=== PATIENT | male | born 1945 | race Caucasian/White ===

== ENCOUNTER → 2016-08-21 | Outpatient (CLI) | payer MEDICARE, OTHER ==
[2016-06-28 06:02] VITALS: BP 135/71
[~2016-08-21] MED LIST: ASPI325T4 PO; CELE200C PO; CHOL100013 PO; HYDR-2762 PO; NAPR500T PO; PSEU120T9 PO; VITA1CAP PO
[2016-08-21 14:24] LABS: BILIRUBIN,URINE NEGATIVE (NEG); GLUCOSE,URINE NEGATIVE (NEG); NITRITE,URINE NEGATIVE (NEG); PH,URINE 6.5; PROTEIN,URINE NEGATIVE (NEG-TRACE); UROBILINOGEN,URINE 0.2 mg/dL (0.2 mg/dL)
[2016-08-21 14:26] LABS: BASO # 0.1 x10^3/uL (0.0-0.2); BASO % 1 % (0-3); EOS % 2 % (0-3); HEMATOCRIT 39.1 % (39.0-53.0); HEMOGLOBIN 12.7 g/dL (13.0-17.5); LYMPH # 1.8 x10^3/uL (1.0-4.8); LYMPH % 23 % (24-48); MEAN CORPUSCULAR HEMOGLOBIN 29 pg (25-35); MEAN CORPUSCULAR HGB CONC 32 g/dL (31-37); MEAN CORPUSCULAR VOLUME 90 fL (79-100); MONO % 8 % (0-9); NEUT % 66 % (31-73); PLATELET COUNT 226 x10^3/uL (140-400); RED BLOOD COUNT 4.34 x10^6/uL (4.30-5.70); RED CELL DISTRIBUTION WIDTH 14.4 % (11.5-14.5); WHITE BLOOD COUNT 7.6 x10^3/uL (4.0-11.0)
[2016-08-21 14:32] LABS: ALBUMIN 3.8 g/dL (3.4-5.0); CREATININE 0.8 mg/dL (0.7-1.3); GFR 95.6; POTASSIUM 4.1 mmol/L (3.5-5.1)
[2016-08-21 14:35] LABS: PROTHROMBIN TIME PATIENT 12.9 SEC (11.7-14.0)
[2016-08-21 14:38] LABS: BACTERIA,URINE 0 /HPF (0-FEW); WBC,URINE 0 /HPF (0-4)
== END | disposition home or self-care (01) ==
LOC: SURGPAT 13:09
PROVIDERS: ATTEND Orthopaedic Surgery
DX: Z96.652 Presence of left artificial knee joint (principal)
CPT/HCPCS: 36415; 80048; 81001; 82040; 85027; 85610; 85651; 85730; 87641

== ENCOUNTER 2016-09-04 05:33 | Inpatient (IN) | payer MEDICARE, OTHER ==
--- NOTE | 2016-09-03 09:35 | PDOC1 ---
History and Physical Date of Admission Date of Admission DATE: 09/04/16 Identification/Chief Complaint Chief Complaint left knee osteoarthritis pain Source Source: Chart review History of Present Illness History of Present Illness He is a 70-year-old man with left knee pain. He had revision right total knee arthroplasty on 06/26/16 and is doing very well postoperatively. He had a visit on 03/11/12 in our office where he was diagnosed with left knee osteoarthritis and given nonoperative treatment. He was seen again on 12/06/2013, and treated with a cortisone injection for left knee osteoarthritis. Severe arthritis and [id number] changes noted at the prior visits. He did have an MRI on 12/06/2013 that showed full thickness cartilage loss on the lateral trochlea, a subcentimeter loose body. Degenerative meniscus tears, and tricompartmental chondromalacia and degenerative changes. He has used Aleve for the symptoms in the knee, and was on crutches for a while one was really bad. He has been walking aggressively in an attempt to lose weight. Past Medical History Cardiovascular: No pertinent hx Past Surgical History Past Surgical History: Arthroscopy, Total knee replacement (right - 06/26/16), Other (CTR, right hand reconstructive surgery) Family History Family History: Heart Disease Social History Smoke: Quit ALCOHOL: none Drugs: None Current Medications Current Medications Active Scripts Active Reported Hydrocodone-Apap 7.5-325 (Hydrocodone Bit/Acetaminophen) 1 Each Tablet 1 Tab PO PRN Q6HRS PRN Sudafed 12-Hour (Pseudoephedrine Hcl) 120 Mg Tablet.er 30 Mg PO Aspirin 325 Mg Tablet 1 Tab PO BID Allergies Allergies: Coded Allergies: celecoxib (Verified Allergy, Intermediate, Rash, 08/21/16) warfarin (Verified Allergy, Intermediate, Hives, 08/21/16) adhesive (Verified Allergy, Unknown, 08/21/16) SKIN BECAME RED/ LIKE CHEMICAL BURN TO INCISION SITE. perfume (Verified Adverse Reaction, Intermediate, Rash, 08/21/16) Physical Exam General: Alert, Oriented X3, Cooperative, No acute distress HEENT: Atraumatic Lungs: Normal air movement Heart: RRR Abdomen: Soft Extremities: No clubbing, No cyanosis, Normal pulses, Other (The LEFT knee shows his mildly antalgic gait. There is varus alignment. No masses. No detectable effusion. Tenderness on the joint lines. Range of motion is 5-115 degrees. There is crepitus with range of motion, and pain at the extremes of motion. The knee is stable to varus and valgus stress without subluxation or laxity. Muscle strength is normal (5/5) for quadriceps and hamstrings, and muscle tone is normal. The skin is normal with no scars, rashes, lesions or ulcers. Light touch sensation is intact. No edema and no varicosities. Dorsalis pedis pulse is intact and capillary refill is normal. The RIGHT knee range of motion 0-110 degrees. The incision is benign. No longer using a walker or crutches. Slight warmth and swelling consistent with recent knee replacement. No sign of infection. Calf is soft and nontender, with no evidence of DVT. ) Skin: No rashes, No breakdown, No significant lesion Neuro: Normal speech, Sensation intact Psych/Mental Status: Mental status NL, Mood NL VTE Prophylaxis Ordered VTE Prophylaxis Devices: Yes VTE Pharmacological Prophylaxi: Yes Assessment/Plan Assessment/Plan Left knee osteoarthritis pain. Dr. Garcia and the patient had a long discussion about his left knee. He does have a small loose body seen on the MRI, but it is my opinion that removal of the loose body will not dramatically improved his symptoms. In fact it could be just a placebo effect as has been shown in some of the prior studies done at the [facility] of patients with severe arthritis to have knee arthroscopy. My recommendation is either nonoperative treatment, or consider total knee arthroplasty. At age 70 years, there is not much benefit to waiting five more years to try to have his knee replaced, as his health was not likely to improve in that time and likely only to worsen. We talked about the risks of total knee arthroplasty such as infection, blood clots, stiffness, or other potential surgical or anesthetic complications. All of his questions were answered and he agrees to proceed. JENNIFER WHEATLEY Sep 03, 2016 09:35
[2016-09-04] VITALS (11 sets, daily range): BP systolic 105–134; BP diastolic 47–69
[~2016-09-04] VITALS: Ht 180.3 cm; Wt 87.1 kg
[2016-09-04] MEDS ORDERED: MELOXICAM 7.5 MG TABLET PO PRN (06:00)
[2016-09-04] MEDS ORDERED: TRANEXAMIC ACID 1,000 MG in IV NS 50ML -- 1ST BAG INJ ONE (06:00)
[2016-09-04] MEDS ORDERED: MORPHINE SULFATE 5 MG, KETOROLAC TROMETHAMINE 30 MG, ROPIVacaine 0.5% PF 60 ML, EPINEPH... INT ART ONE ×5 (06:00)
[2016-09-04] MEDS ORDERED: CEFAZOLIN 2GM PREMIX 50 ML IV PRN (06:00)
[2016-09-04] MEDS ORDERED: HYDROCODONE/APAP 7.5/325MG TABLET. PO PRN (06:00)
[2016-09-04] MEDS ORDERED: MELO15TA6 PO (06:09)
[2016-09-04] MEDS ORDERED: VANCOMYCIN 1 GM VIAL. ONE (06:19)
[2016-09-04] MEDS ORDERED: TOBRAMYCIN POWDER 1.2 GM VIAL. ONE (06:19)
[2016-09-04] MEDS: IV RINGERS,LACTATED 1000ML 1,000 ML IV SCH ×2 (06:44→10:46)
[2016-09-04] MEDS ORDERED: ONDANSETRON PF 4 MG/2 ML VIAL. IV PRN (07:00)
[2016-09-04] MEDS ORDERED: PROCHLORPERAZINE 10 MG/2 ML VIAL. IV PRN ×2 (07:00→10:15)
[2016-09-04] MEDS ORDERED: HYDROMORPHONE 2 MG/ML VIAL. IV PRN (07:00)
[2016-09-04] MEDS ORDERED: FENTANYL PF 100 MCG/2 ML VIAL. IV PRN ×3 (07:00→10:15)
[2016-09-04] MEDS ORDERED: MORPHINE SULFATE 2 MG/ML DISP.SYRIN. IV PRN ×2 (07:00→10:15)
[2016-09-04] MEDS ORDERED: LIDOCAINE 1% 1 ML SYRINGE. ID PRN (07:00)
[2016-09-04] MEDS ORDERED: FENTANYL PF 100 MCG/2 ML VIAL. ONE (07:17)
[2016-09-04] MEDS ORDERED: MIDAZOLAM HCL 2 MG/2 ML VIAL. ONE (07:18)
[2016-09-04] MEDS ORDERED: ONDANSETRON PF 4 MG/2 ML VIAL. ONE (07:18)
[2016-09-04] MEDS ORDERED: LIDOCAINE 2% 100 MG/5 ML DISP.SYRIN. ONE (07:18)
[2016-09-04] MEDS ORDERED: SEVOFLURANE 61 TO 120 MINUTES. IH ONE (07:18)
[2016-09-04] MEDS ORDERED: DEXAMETHASONE SOD PHOS 20 MG/5 ML VIAL. ONE (07:18)
[2016-09-04] MEDS ORDERED: PROPOFOL 20 ML IV ONE (07:18)
[2016-09-04] MEDS ORDERED: TRANEXAMIC ACID 1,000 MG in IV NS 50ML -- 2ND BAG INJ ONE (08:00)
[2016-09-04] MEDS ORDERED: EPHEDRINE PF IN SALINE 50 MG/5 ML DISP.SYRIN. IV ONE (08:08)
[2016-09-04] MEDS ORDERED: MORPHINE PF 5 MG/10 ML VIAL. ONE (10:13)
[2016-09-04] MEDS ORDERED: ZOLPIDEM 5 MG TABLET. PO PRN (10:15)
[2016-09-04] MEDS ORDERED: DEXTROSE 50% 25 GM / 50ML DISP.SYRIN. IV PRN (10:15)
[2016-09-04] MEDS ORDERED: OXYCODONE/APAP 5/325 TABLET. PO PRN (10:15)
[2016-09-04] MEDS ORDERED: PROCHLORPERAZINE 5 MG TABLET. PO PRN (10:15)
[2016-09-04] MEDS ORDERED: MORPHINE SULFATE 4 MG/ML DISP.SYRIN. IV PRN ×2 (10:15)
[2016-09-04] MEDS ORDERED: METOCLOPRAMIDE HCL 10 MG/2 ML VIAL. IV PRN (10:15)
[2016-09-04] MEDS ORDERED: 0.9 % SODIUM CHLORIDE 10 ML DISP.SYRIN. IV PRN (10:15)
[2016-09-04] MEDS ORDERED: DIPHENHYDRAMINE 50 MG/ML VIAL IV PRN (10:15)
[2016-09-04] MEDS ORDERED: ACETAMINOPHEN 325 MG TABLET. PO PRN (10:15)
[2016-09-04] MEDS ORDERED: TRAMADOL 50 MG TABLET. PO PRN ×2 (10:15)
[2016-09-04] MEDS ORDERED: MORPHINE SULFATE 10 MG/ML VIAL. IV PRN (10:15)
[2016-09-04] MEDS ORDERED: CALCIUM CARBONATE 500 MG TAB.CHEW PO PRN (10:15)
--- NOTE | 2016-09-04 10:30 | PDOC4 ---
Operative Note Operative Note Date of Procedure: September 04, 2016 Pre-Op Diagnosis: Osteoarthritis left knee Post-Op Diagnosis: Osteoarthritis left knee Procedure: left total knee arthroplasty Surgeon: Kolby Garcia MD Mortgage Clerk: Ewa Diaz PA-C Anesthesia: General EBL: 100 mL Specimens Obtained: left knee bone and soft tissue Complications: none Implant Company: [employer] Drains: Hemovac plus pain catheter Tourniquet time: 62 minutes Indications for Procedure: Arthritis pain unrelieved by nonoperative management. Findings: Severe osteoarthritis with bone on bone contact in all three compartments Implants used: Size 5 left bicruciate stabilized Journey II BCS cobalt chrome femoral component, size 6 left Journey nonporous tibial baseplate, size 5 -6 15 mm left Journey II BCS XLPE articular insert, 38 mm oval Valery II resurfacing patellar component Procedure in Detail: The patient was identified in the preoperative holding area, and the correct left extremity was marked by me. The patient was taken to the operating room where the patient was anesthetized by the Department of Anesthesia. Preoperative antibiotics were given intravenously. Tranexamic acid 1 g was given intravenously for intraoperative hemostasis. A "time-out" procedure was performed. The patient was positioned supine on the operative table with a tourniquet on the upper thigh. The limb was thoroughly prepped and draped in sterile fashion. An impervious stockinet and adhesive drape were used such that the skin was entirely covered. An Mandel leg newton was used. The operating team wore personal exhaust-ventilated hoods. The tourniquet was inflated to 350 mm Hg. A midline skin incision was made with a scalpel using the patella and tibial tubercle as landmarks. Electrocautery was used for hemostasis. My pediatric physician assistant used rake retractors. A medial parapatellar arthrotomy incision was used with extension into the distal quadriceps tendon. The patella was retracted laterally and Hohmann retractors were now used by my pediatric physician assistant. Excess synovium, the menisci, and the cruciate ligaments were resected sharply. The patella was assessed and excess synovium and osteophytes around the patellar articulation were removed. The patella was measured with a caliper, cut freehand with a saw using caliper measurements, sized, and then drilled for an oval three-pegged patella component. Periarticular injection was used in the suprapatellar pouch and distal quadriceps muscle. Whitesides's line was assessed on the femur. An intra-medullary 5 degree cutting guide was pinned to the femur, and a distal femoral cut was made with an oscillating saw. An additional 4 mm resection was used due to the deep femoral sulcus, and deficient femoral condyle.My pediatric physician assistant held Hohmann retractors and an [facility] retractor to protect the medial and lateral collateral ligaments, the patellar tendon, the skin and the other soft tissues. An anterior referencing guide was applied with external rotation of 5 to match Whitesides line. A 5-in-1 Journey II cutting guide was then applied and pinned to the femur. The posterior, anterior, and all chamfer cuts were made with the oscillating saw. An extramedullary guide was pinned to the tibia and rotational alignment and the planned resection thickness assessed. An external alignment emily was used to verify the planned cut in the varus-valgus plane and regarding posterior slope referencing the tibial tubercle, the tibial shaft, the ankle joint, and the second metatarsal. The upper tibia was cut made with an oscillating saw. My pediatric physician assistant held Hohmann retractors and a posterior cruciate ligament retractor to protect the medial and lateral collateral ligaments, the patellar tendon, the skin, the peroneal nerve and the other soft tissues. The upper tibia was sized with a trial baseplate. The posterior compartment was cleared of osteophytes and loose bodies, and posterior capsule released. Laura-articular injection was used in the posterior compartment. The box cut for a posterior stabilized component was made. A preliminary reduction was performed with a trial femur, trial tibial baseplate and trial polyethylene. Soft-tissue balancing was now performed, and extension and rotation of the alignments was checked using a guide emily in the tibial trial and a guide pin in the femur. A medial release was required, using a 10 blade scalpel, and a Jacobs elevator to elevate the medial structures from the upper medial tibia. The stability was assessed using different thicknesses of tibial articular surface to find satisfactory stability and good range of motion. The rotation of the tibial component was marked on the upper tibia. Final trial reduction was now performed verifying patella tracking and tibiofemoral stability and alignment. The tibia preparation was completed with a drill, saw, and fin punch at the previously noted rotation. The final implants were verified and opened. Outer gloves were changed by the operating team. The bone cuts were washed thoroughly with the [employer] InterPulse device and dried. Two packages of Palacos bone cement were mixed in powdered form with 1 gm of Vancomycin and 1.2 g tobramycin, then vacuum-mixed with the monomer, and placed into a cement gun. The cut surfaces of the bone were thoroughly dried with Moseley-tip suction and with laparotomy sponges for cement interdigitation. The final components were cemented into place. The knee was kept at full extension while the cement hardened, and excess cement was removed. Tranexamic acid 1 g was redosed intravenously for additional intraoperative hemostasis. A final periarticular injection was used for pain relief. The tourniquet was released, and electrocautery was used for hemostasis. A final check of [id number] and stability was made, and the polyethylene implant final size was chosen. The polyethylene implant was secured to the tibial baseplate, and the knee was reduced a final time. Thorough irrigation was used. Hemovac and pain catheter were used.The arthrotomy was closed with interrupted [id number] #1 PDS suture. The capsulotomy was then run with #1 STRATAFIX symmetric PDS plus. The subcutaneous tissues were closed with #2-0 Vicryl by my pediatric physician assistant. The skin was reapproximated with staplesby my pediatric physician assistant. A bulky sterile dressing was applied. Needle and sponge counts were correct. KOLBY GARCIA MD Sep 04, 2016 10:30
[2016-09-04] MEDS: FENTANYL PF 100 MCG/2 ML VIAL. IV PRN ×2 (10:47→11:04)
--- NOTE | 2016-09-04 10:53 | RAD ---
AP and lateral left knee radiographs 09/04/2016 Clinical history: Post left knee replacement. Portable AP and crosstable lateral digital radiographs of the left knee were obtained. The patient is status post left TKA. The prosthetic components are intact. A surgical drain is noted in place. Skin lucy are seen anteriorly. No fracture or dislocation is seen. Impression: Status post left TKA. No acute osseous abnormality is seen.
[2016-09-04] MEDS: IV DEXTROSE 5 %-0.45 % NACL 1,000 ML IV SCH ×2 (12:30→20:36)
[2016-09-04] MEDS: CEFAZOLIN 2GM PREMIX 50 ML IV SCH ×2 (13:28→20:34)
[2016-09-04] MEDS: HYDROCODONE/APAP 7.5/325MG TABLET. PO PRN (18:13)
[2016-09-04] MEDS: FERROUS SULFATE 325 MG TABLET PO SCH (18:13)
[2016-09-04] MEDS: KETOROLAC TROMETHAMINE 30 MG, BUPIVACAINE MPF 0.25% 20 ML, EPINEPHRINE 0.5 MG in TOTAL ... INT ART SCH (18:14)
[2016-09-04] MEDS: ASPIRIN ENTERIC COATED 325 MG TABLET.DR. PO SCH (20:34)
[2016-09-05] MEDS: HYDROCODONE/APAP 10/325 TABLET. PO PRN (01:53)
[2016-09-05] MEDS: CEFAZOLIN 2GM PREMIX 50 ML IV SCH (01:53)
[2016-09-05 03:28] VITALS: BP 109/52
[2016-09-05] MEDS: KETOROLAC TROMETHAMINE 30 MG, BUPIVACAINE MPF 0.25% 20 ML, EPINEPHRINE 0.5 MG in TOTAL ... INT ART SCH (05:26)
[2016-09-05 05:39] LABS: HEMATOCRIT 33.1 % (39.0-53.0); RED BLOOD COUNT 3.74 x10^6/uL (4.30-5.70); RED CELL DISTRIBUTION WIDTH 14.3 % (11.5-14.5); WHITE BLOOD COUNT 14.2 x10^3/uL (4.0-11.0)
[2016-09-05] MEDS ORDERED: MAGNESIUM HYDROXIDE 2,400 MG/30 ML ORAL.SUSP. PO PRN (06:00)
[2016-09-05 06:41] VITALS: BP 98/52
[2016-09-05] MEDS: IV DEXTROSE 5 %-0.45 % NACL 1,000 ML IV SCH ×2 (08:30→18:30)
[2016-09-05] MEDS: MELOXICAM 7.5 MG TABLET PO SCH (08:31)
[2016-09-05] MEDS: ASPIRIN ENTERIC COATED 325 MG TABLET.DR. PO SCH ×2 (08:31→20:24)
[2016-09-05] MEDS: FERROUS SULFATE 325 MG TABLET PO SCH ×2 (08:31→16:57)
[2016-09-05] MEDS: SENNOSIDES/DOCUSATE 8.6/50MG TABLET. PO SCH (08:31)
[2016-09-05] MEDS: HYDROCODONE/APAP 7.5/325MG TABLET. PO PRN ×4 (08:31→20:23)
[2016-09-05] MEDS: MULTIVITAMIN with MINERAL TABLET. PO SCH (08:32)
[2016-09-05] MEDS ORDERED: BISACODYL 10 MG SUPP.RECT PR PRN (16:00)
--- NOTE | 2016-09-05 16:49 | PDOC ---
PROGRESS NOTES Subjective Subjective Doing well today. Patient said pain was bad last night, but today is better. Objective Vital Signs Vital Signs Date Time Temp Pulse Resp B/P Pulse Ox O2 Delivery O2 Flow Rate FiO2 09/05/16 13:30 Room Air 09/05/16 07:50 2.0 09/05/16 06:41 97.7 64 20 98/52 94 97.7 Physical Exam Sitting in recliner with legs elevated and ice pack on knee. Postop dressing dry and intact. Pain catheter in place. Hemovac was accidentally removed earlier today. Calf soft and nontender, with a negative Alejandro's sign. Good dorsiflexion and plantarflexion with no sign of neurovascular injury. Peripheral pulses and light touch sensation intact. Labs Laboratory Tests Test 09/05/16 05:25 White Blood Count 14.2x10^3/uL (4.0-11.0) Red Blood Count 3.74x10^6/uL (4.30-5.70) Hemoglobin 11.0g/dL (13.0-17.5) Hematocrit 33.1% (39.0-53.0) Mean Corpuscular Volume 89fL (79-100) Mean Corpuscular Hemoglobin 29pg (25-35) Mean Corpuscular Hemoglobin Concent 33g/dL (31-37) Red Cell Distribution Width 14.3% (11.5-14.5) Platelet Count 181x10^3/uL (140-400) Laboratory Tests Test 09/05/16 05:25 White Blood Count 14.2x10^3/uL (4.0-11.0) Red Blood Count 3.74x10^6/uL (4.30-5.70) Hemoglobin 11.0g/dL (13.0-17.5) Hematocrit 33.1% (39.0-53.0) Mean Corpuscular Volume 89fL (79-100) Mean Corpuscular Hemoglobin 29pg (25-35) Mean Corpuscular Hemoglobin Concent 33g/dL (31-37) Red Cell Distribution Width 14.3% (11.5-14.5) Platelet Count 181x10^3/uL (140-400) Imaging Postoperative x-rays were reviewed and show satisfactory total knee arthroplasty without apparent complication. Assessment Assessment POD #1 TKA Problems: Plan Plan of Care Continue POC including DVT ppx and PT. If rest of hospital stay goes uneventful , patient would like to be discharged to home tomorrow evening with outpatient physical therapy. He says he does not want to be here during the predicted snow storm on Friday. JENNIFER WHEATLEY Sep 05, 2016 16:49
[2016-09-05 19:00] VITALS: BP 141/66
[2016-09-06] MEDS: HYDROCODONE/APAP 7.5/325MG TABLET. PO PRN ×2 (01:13→05:36)
[2016-09-06 05:34] VITALS: BP 138/68
[2016-09-06] MEDS: FERROUS SULFATE 325 MG TABLET PO SCH (08:11)
[2016-09-06] MEDS: ASPIRIN ENTERIC COATED 325 MG TABLET.DR. PO SCH (08:11)
[2016-09-06] MEDS: MELOXICAM 7.5 MG TABLET PO SCH (08:11)
[2016-09-06] MEDS: SENNOSIDES/DOCUSATE 8.6/50MG TABLET. PO SCH (08:11)
[2016-09-06] MEDS: MULTIVITAMIN with MINERAL TABLET. PO SCH (08:11)
[2016-09-06] MEDS: HYDROCODONE/APAP 10/325 TABLET. PO PRN (08:12)
[2016-09-06 11:08] LABS: HEMATOCRIT 30.9 % (39.0-53.0); HEMOGLOBIN 10.2 g/dL (13.0-17.5)
--- NOTE | 2016-09-06 12:17 | PDOC ---
PROGRESS NOTES Subjective Subjective Doing well. Only reports mild pain increase from yesterday. Objective Vital Signs Vital Signs Date Time Temp Pulse Resp B/P Pulse Ox O2 Delivery O2 Flow Rate FiO2 09/06/16 09:12 Room Air 09/06/16 08:00 2.0 09/06/16 05:36 18 95 09/06/16 05:34 98.5 76 138/68 98.5 Physical Exam Expected swelling. Pain catheter and drain have been removed. Dressing with spotty drainage only. Calf soft and nontender. Negative homans sign. Good AROM ankle. Peripheral pulses and light touch sensation intact. Labs Laboratory Tests Test 09/05/16 05:25 09/06/16 10:55 White Blood Count 14.2x10^3/uL (4.0-11.0) Red Blood Count 3.74x10^6/uL (4.30-5.70) Hemoglobin 11.0g/dL (13.0-17.5) 10.2g/dL (13.0-17.5) Hematocrit 33.1% (39.0-53.0) 30.9% (39.0-53.0) Mean Corpuscular Volume 89fL (79-100) Mean Corpuscular Hemoglobin 29pg (25-35) Mean Corpuscular Hemoglobin Concent 33g/dL (31-37) 33g/dL (31-37) Red Cell Distribution Width 14.3% (11.5-14.5) Platelet Count 181x10^3/uL (140-400) Laboratory Tests Test 09/06/16 10:55 Hemoglobin 10.2g/dL (13.0-17.5) Hematocrit 30.9% (39.0-53.0) Mean Corpuscular Hemoglobin Concent 33g/dL (31-37) Imaging X-rays independently reviewed by me and show satisfactory TKA alignment and no apparent complications. Assessment Assessment POD 2 TKA Problems: Plan Plan of Care Continue DVT prophylaxis and physical therapy. Planned discharge tomorrow to home, with outpatient PT. Office F/U in 10-14 days. KOLBY SOUZA MD Sep 06, 2016 12:17
[2016-09-06] MEDS: OXYCODONE/APAP 7.5/325 TABLET. PO PRN ×2 (12:24→15:18)
--- NOTE | 2016-09-06 13:25 | PATHOLOGY ---
PATHOLOGY REPORT * * * * * * * * FINAL DIAGNOSIS: Segments of bone and soft tissue, left total knee arthroplasty: - Advanced degenerative arthritis. (JPM:; d/t: 09/06/16) REPORT ELECTRONICALLY SIGNED BY: Chucho Sage M.D. DATE/TIME: 09/06/2016 13:24 * * * * * * * * GROSS PATHOLOGY: Received in formalin labeled "Pacheco Treadwell left knee tissue," are multiple segments of bone, including tibial plateau, measuring 9.8 x 7.2 x 2.7 cm in aggregate dimensions admixed with soft tissue; meniscus is not present. The specimen shows focal eburnation of the articular surfaces. Business System Consultant sections of bone and soft tissue are submitted in cassette A1, following decalcification. (CAA; 09/05/2016) INITIAL CPT CODE(S): A; 85751, 53377 Professional services performed [place] [facility] [place] [address] Technical services performed by [facility] at [address] [place] [address]. SPECIMEN(S) RECEIVED: A.Left knee tissue CLINICAL HISTORY: Left knee OA PATIENT: PACHECO TREADWELL /AGE: 410/18/1945 (Age: 70) PATIENT #: [id number] ALT CASE #: SPECIMEN COLLECTION DATE: 09/04/2016 SPECIMEN RECEIVED DATE: 09/04/2016 [facility] - [address] [place] [address] - PHONE: [phone] * * * END OF REPORT * * *
[2016-09-06 14:50] VITALS: BP 130/68
[2016-09-06] MEDS ORDERED: OXYC-323 PO (14:59)
--- NOTE | 2016-09-06 19:56 | PDOC3 ---
Discharge Summary Visit Information Date of Admission: Sep 04, 2016 Date of Discharge: Sep 06, 2016 Admitting Diagnosis: left knee osteoarthritis pain Final Diagnosis Problems Medical Problems: (1) Osteoarthritis of left knee Status: Acute Brief Hospital Course Allergies Allergies Coded Allergies Type Severity Reaction Last Updated Verified adhesive Allergy Intermediate 09/04/16 Yes celecoxib Allergy Intermediate Rash 09/04/16 Yes warfarin Allergy Intermediate Hives 09/04/16 Yes perfume Adverse Reaction Intermediate Rash 09/04/16 Yes Vital Signs Vital Signs Date Time Temp Pulse Resp B/P Pulse Ox O2 Delivery O2 Flow Rate FiO2 09/06/16 15:18 Room Air 09/06/16 14:50 99.1 100 16 130/68 95 99.1 09/06/16 08:00 2.0 Lab Results Laboratory Tests Test 09/05/16 05:25 09/06/16 10:55 White Blood Count 14.2x10^3/uL (4.0-11.0) Red Blood Count 3.74x10^6/uL (4.30-5.70) Hemoglobin 11.0g/dL (13.0-17.5) 10.2g/dL (13.0-17.5) Hematocrit 33.1% (39.0-53.0) 30.9% (39.0-53.0) Mean Corpuscular Volume 89fL (79-100) Mean Corpuscular Hemoglobin 29pg (25-35) Mean Corpuscular Hemoglobin Concent 33g/dL (31-37) 33g/dL (31-37) Red Cell Distribution Width 14.3% (11.5-14.5) Platelet Count 181x10^3/uL (140-400) Laboratory Tests Test 09/06/16 10:55 Hemoglobin 10.2g/dL (13.0-17.5) Hematocrit 30.9% (39.0-53.0) Mean Corpuscular Hemoglobin Concent 33g/dL (31-37) Brief Hospital Course 70 year old male who presented with knee osteoarthritis, for elective total knee arthroplasty. The patient underwent total knee arthroplasty under general anesthesia the day of admission. Perioperative antibiotics and DVT prophylaxis were used. Postoperatively physical therapy and case management were consulted. The patient progressed and is stable for discharge. Discharge Information Condition at Discharge: Stable Follow Up: Weeks (2) Disposition/Orders: D/C to Home Scheduled Aspirin (Aspirin) 1 TAB PO BID (Reported) Meloxicam (Mobic) 1 TAB PO DAILY (Reported) Scheduled PRN Oxycodone/Apap 5-325 (Percocet 5-325 Mg Tablet) 1-2 TAB PO PRN Q4HRS PRN PRN pain relief (Reported) Miscellaneous Medications Pseudoephedrine Hcl (Sudafed 12-Hour) 30 MG PO (Reported) Discontinued Medications Hydrocodone Bit/Acetaminophen (Hydrocodone-Apap 7.5-325 ) 1 TAB PO PRN Q6HRS PRN PRN PAIN (Reported) Patient Instructions Patient Instructions Patient Instructions Continue to WBAT with walker. Keep dressing dry and intact. F/U with [facility] in 10-14 days. Call for appointment. Physical therapy for TKA Continue DVT prophylaxis. JENNIFER WHEATLEY Sep 06, 2016 19:56
== END 2016-09-06 15:15 | disposition home or self-care (01) | DRG 470 ==
LOC: OPSVCIP 05:33 → 4 SOUTHEST 11:37
PROVIDERS: ADMIT Orthopaedic Surgery; ATTEND Orthopaedic Surgery
PROC: 0SRD0J9 Replacement of Left Knee Joint with Synthetic Substitute, Cemented, Open Approach (ICD-10-PCS; principal; 2016-09-04 07:30)
DX: M17.12 Unilateral primary osteoarthritis, left knee (principal); M94.20 Chondromalacia, unspecified site; Z96.651 Presence of right artificial knee joint; Z88.8 Allergy status to other drugs, medicaments and biological substances; Z91.09 Other allergy status, other than to drugs and biological substances; Z82.49 Family history of ischemic heart disease and other diseases of the circulatory system; Z87.891 Personal history of nicotine dependence
CPT/HCPCS: 36415; 73560; 85014; 85018; 85027; 86850; 86900; 86901; 88305; 88311; C1713; J0171; J0690; J0780; J1100; J1885; J2250; J2270; J2405; J2704; J2795; J3010; J3260; J3370; J3490; J7030; J7120; 97116; 97150; 97530; 97535; C1769

== ENCOUNTER → 2019-02-11 | Outpatient (CLI) | payer MEDICARE, OTHER ==
[~2019-02-11] MED LIST changes: -ASPI325T4 PO; +ASPI325T8 PO; -HYDR-2762 PO; +HYDR-2765 PO; +MELO15TA6 PO; +NAPR-683 PO; -NAPR500T PO; +OXYC1TAB15 PO
--- NOTE | 2019-02-11 14:00 | RAD ---
KNEE BILAT 2V, KNEE STANDING BILAT AP 02/11/2019 12:00 AM INDICATION: Bilateral knee pain COMPARISON: None available. TECHNIQUE: 3 views of the right and 3 views of the left knee are provided. FINDINGS: Bilateral total knee arthroplasty is identified. No periprosthetic fracture is identified. No lucency identified surrounding the hardware. Small left knee joint effusion. No significant right knee joint effusion. Bilateral prepatellar edema is identified. IMPRESSION: Bilateral total knee arthroplasty without evidence for hardware failure. Small left knee joint effusion. Bilateral prepatellar edema. Electronically signed by: Becki Krueger MD (02/11/2019 1:57 PM) [id number]
== END | disposition home or self-care (01) ==
LOC: RAD 08:23
PROVIDERS: ATTEND Orthopaedic Surgery
DX: M25.462 Effusion, left knee (principal); Z96.653 Presence of artificial knee joint, bilateral
CPT/HCPCS: 73560; 73565

== ENCOUNTER → 2019-03-02 | Outpatient (CLI) | payer MEDICARE ==
--- NOTE | 2019-03-02 15:10 | RAD ---
BONE SCAN 3 PHASE Clinical Indication: Right knee pain and swelling since 2009. Right total knee replacement 2009, 2016 adjustment made. Left total knee replacement 2016. Comparison: Bilateral knee radiographs, February 11, 2019. TECHNIQUE: Patient is injected with 21 mCi of technetium 99m MDP. Anterior and posterior angiographic phase images of the knees. Anterior and posterior immediate static images. After routine delay, multiple projection images of the knees. Findings: On the angiographic phase images, no hyperemia of the knees is appreciated. Tracer in the soft tissues is relatively symmetric. On blood pool images, no asymmetric increased tracer is seen. On delay images, periprosthesis tracer uptake of the knees is relatively symmetric. There is greater tracer uptake of the right lateral tibial plateau compared to the left. IMPRESSION: Three-phase bone scan pattern is not suggestive of loosening. Electronically signed by: Bishnu Ewing MD (03/02/2019 3:07 PM) [id number]
== END | disposition home or self-care (01) ==
LOC: NM 09:21
PROVIDERS: ATTEND Orthopaedic Surgery
DX: T84.84XA Pain due to internal orthopedic prosthetic devices, implants and grafts, initial encounter (principal); Z96.651 Presence of right artificial knee joint
CPT/HCPCS: 78315; A9503